=== PATIENT | male | born 1950 | race Caucasian/White ===

== ENCOUNTER 2017-01-19 07:03 | Day surgery (SDC) | payer MEDICAID ==
--- NOTE | 2017-01-19 06:44 | History and Physical Report ---
DATE: 01/18/2017. CHIEF COMPLAINT AND HISTORY OF CHIEF COMPLAINT: This patient presents with a history of an intractable lumbar radiculitis. A surgical evaluation with Dr. Herrera suggested no surgery, but a spinal cord stimulator trial was recommended. A trial was conducted which was not successful. He is here for an implanted spinal catheter infusion trial with hydromorphone to determine if the implantation of a permanent system can be of any value in his pain control. PAST MEDICAL HISTORY: Hypertension. SOCIAL HISTORY: Smoking and caffeine. FAMILY HISTORY: Coronary artery disease, hypertension, cancer. PAST SURGICAL HISTORY: Cervical spine fusion, cardiac catheterization. MEDICATIONS ON ADMISSION: To be provided. ALLERGIES: None. REVIEW OF SYSTEMS: The patient seems appropriate and in no acute distress. The remainder of the systems review shows glasses, dentures, blood pressure issues, reflux, degenerative arthritis. PHYSICAL EXAMINATION: General: Height is 5 feet, 9 inches weight is 160 pounds. Vital Signs: Unavailable. HEENT: Within normal limits. Lungs: Clear. Heart: Regular rate and rhythm. Abdomen: Nontender. Musculoskeletal: Examination of the musculoskeletal system shows diffuse tenderness throughout the lumbar spine extending from the lower scapular border to the lumbosacral junction. Range of motion does seem to produce pain into the area. There is a lower extremity component across the front and back surface. Motor and sensory field function appears to be intact. Ambulation: No assistive device is required for ambulation. Neurologic: Cranial nerves are intact. IMPRESSION: LUMBAR RADICULITIS, ICD-10 CODE M54.16 AND M54.17. PLAN: The patient is here for an implanted spinal catheter infusion trial with hydromorphone to determine if the intrathecal infusion of an opioid can be of any value in his pain control. Implanted catheter technique will be utilized. He is requesting an abdominal pump implant which will be handled by his referring physician, Dr. Herrera. We will tunnel a temporary catheter to his flank which will be exteriorized for an external pump. The permanent implant will then require removal of the externalized catheter and then will be interfaced to a separate catheter component tunneled to his abdomen. All of the potential risks, side effects, and complications have been evaluated and discussed including nerve root injury, spinal cord injury, spinal puncture with dural puncture and spinal headache. The appropriate information through the shop lead has also been provided, reviewed, and discussed in detail. He understands the potential risks, side effects, and complications and has consented. The trial will be handled on an outpatient basis, although we will evaluate an overnight stay. An epidural blood patch will be performed routinely also in an effort to help prevent spinal headache. JOB NUMBER: [id number] cc: Dimitris Curiel Dr.
[~2017-01-19 07:03] MED LIST: ACETAMINOPHEN 1,000 MG/100 ML BTL IV ONE; CEFAZOLIN 2 Gram 2 GM/50 ML BAG IVPB ONE; FAMOTIDINE 20MG TABLET PO ONE; HYDROMORPHONE PF 2MG/ML AMP 0.004 MG in 0.9 % SODIUM CHLORIDE 10ML VIA 0.998 ML IV ONE; HYDROMORPHONE PF 2MG/ML AMP 2 MG in 0.9 % SODIUM CHLORIDE 500ML 499 ML IV ONE; MECLIZINE 25 MG TABLET PO ONE; METOCLOPRAMIDE 10 MG TABLET PO ONE; VANCOMYCIN HCL 1,000 MG in DEXTROSE 5 % IN WATER 250 ML IVPB ONE
[2017-01-19] MEDS ORDERED: FENTANYL PF 100MCG/2ML VIAL IV ONE (07:04)
[2017-01-19] MEDS ORDERED: *PACU ONLY* KETAMINE HCL 10 MG/ML (20ML) VIAL IV ONE (07:04)
[2017-01-19] MEDS ORDERED: CEFAZOLIN 1G VIAL IM ONE (07:04)
[2017-01-19] MEDS ORDERED: LIDOCAINE 2% MDV (20MG/ML) 20ML VIAL IV ONE (07:04)
[2017-01-19] MEDS ORDERED: BUPIVACAINE 0.75% W/EPI MPF 30ML VIAL IVP ONE (07:04)
[2017-01-19] MEDS ORDERED: MIDAZOLAM HCL 2MG/2ML VIAL IV ONE (07:04)
[2017-01-19] MEDS ORDERED: HYDROMORPHONE HCL 2 MG/ML VIAL IV ONE (07:04)
[2017-01-19] MEDS ORDERED: LIDOCAINE 1% W/EPI 1:200,000 MPF 30ML SQ ONE (07:04)
[2017-01-19] MEDS ORDERED: PROPOFOL 10 MG/ML VIAL IV ONE (07:04)
[2017-01-19] MEDS ORDERED: DIPHENHYDRAMINE HCL 25 MG CAPSULE PO PRN ×2 (11:29)
[2017-01-19] MEDS ORDERED: HYDROMORPHONE HCL 1 MG/ML CPJ IM PRN (11:29)
[2017-01-19] MEDS ORDERED: ACETAMINOPHEN 325 MG TAB PO PRN ×2 (11:29)
[2017-01-19] MEDS ORDERED: NALOXONE 0.4 MG/1 ML VIAL IVP PRN (11:29)
[2017-01-19] MEDS ORDERED: METOCLOPRAMIDE HCL 10 MG/2 ML VIAL IVP PRN (11:29)
[2017-01-19] MEDS ORDERED: OXYCODONE/APAP 10MG-325MG TABLET PO PRN ×2 (11:29)
[2017-01-19] MEDS ORDERED: SENNOSIDES/DOCUSATE SODIUM UD CAPSULE PO PRN ×2 (11:29)
[2017-01-19] MEDS ORDERED: HYDROMORPHONE HCL 2 MG/ML VIAL IM PRN (11:29)
[2017-01-19] MEDS ORDERED: AL HYDROX/MAG HYDROX 30ML UD PO PRN (11:29)
[2017-01-19] MEDS ORDERED: TEMAZEPAM 15 MG CAPSULE PO PRN ×2 (11:29)
[2017-01-19] MEDS ORDERED: DIPHENHYDRAMINE HCL IV 50 MG/ML VIAL IVP PRN ×2 (11:29)
[2017-01-19] MEDS ORDERED: RINGERS SOLUTION,LACTATED 1,000 ML IV SCH (11:29)
[2017-01-19] MEDS ORDERED: HYDROCODONE/APAP 7.5/325MG TABLET PO PRN ×2 (11:29)
[2017-01-19] MEDS ORDERED: METOCLOPRAMIDE 10 MG TABLET PO PRN (11:29)
--- NOTE | 2017-01-19 16:42 | Operative Note - [facility] ---
DATE OF SURGERY: 01/19/17 PREOPERATIVE DIAGNOSES: 1. POST LUMBAR LAMINECTOMY SYNDROME, ICD-10 CODE = M96.1. 2. LUMBAR RADICULITIS, ICD-10 CODE = M54.16 AND M54.17. OPERATION: 1. FLUOROSCOPICALLY-GUIDED SPINAL ACCESS T L2-3, A THIN-WALLED 20-GAUGE SPINAL CATHETER PARAMEDIAN APPROACH BEVELED WITH A LONG AXIS. 2. THIN-WALLED SPINAL CATHETER ADVANCEMENT T8-9. 3. DIAGNOSTIC MYELOGRAPHY WITH RADIOLOGIC SUPERVISION AND INTERPRETATION. 4. SPINAL OPIOID BOLUS HYDROMORPHONE AT 0.002 MG SPINAL SPACE. 5. INCISION, SUBCUTANEOUS DISSECTION, AND ANCHORING OF SPINAL CATHETER TO SUPRASPINOUS FASCIA. 6. INCISION, SUBCUTANEOUS DISSECTION, AND CREATION OF SUBCUTANEOUS POUCH, LEFT FLANK SUPERIOR TO ILEAL CREST. 7. TUNNELING OF SPINAL CATHETER INTO FLANK POUCH. INTERFACE SPINAL CATHETER WITH SECOND CATHETER COMPONENT BY WAY OF CONNECTOR TUNNELING SECOND CATHETER COMPONENT SUPERIOR 6 CM EXITING SKIN. 8. INTERFACE EXTERNAL CATHETER TO INFUSION DEVICE SET TO DELIVER BY CONTINUOUS INFUSION HYDROMORPHONE AT 0.04 MG PER DAY. 9. CLOSURE OF MIDLINE INCISION VICRYL FOR FASCIA, RUNNING SUBCUTICULAR VICRYL FOR SKIN. CLOSURE OF LEFT FLANK INCISION, NYLON SUTURE. 10. EPIDURAL BLOOD PATCH AT L3-4, 20 ML AUTOLOGOUS BLOOD DRAWN STERILE TECHNIQUE , LEFT ANTECUBITAL. 11. STERILE DRESSING PLACED SECURING CATHETER AND ALL CONNECTIONS UNDER DRESSING. PATIENT TRANSPORTED TO THE RECOVERY ROOM STABLE, SHOWING NO SIDE- EFFECTS FROM THE PROCEDURE OR THE SEDATION, FLAT, PILLOW UNDER HEAD AND KNEES. IN THE RECOVERY ROOM, ALL EXTREMITY MOTIONS AND MOBILITY NOTED. NO COMPLICATIONS IDENTIFIED. SURGEON: JOSE CABRERA D.O. ANESTHESIA: LOCAL SEDATION. ANESTHESIA PROVIDER: MARTI VALERA CRNA INDICATION: This patient presents with a history of a postlaminectomy radiculitis. He is here for an implanted spinal catheter infusion trial Hydromorphone and will return to Dr. Herrera for permanent implant. The request has been for an abdominal pump on the left. The implanted catheter trial will tunnel the catheter to its left flank. A second catheter component exteriorized. For the permanent implant, the external catheter will be removed at the flank incision. A second catheter will then be extended to the pump in the abdomen. PROCEDURE: Intravenous line was placed, vital sign monitoring, IV sedation, prepped and draped in sterile technique, patient position prone. Sterile prep, sterile technique. As the patient was initially placed onto the table and the sedation started, it was noted that he was in, what appeared to be, something comparable to a sinus arrhythmia. There were periodic cycles of PACs and PVCs. Several rhythm strips were taken during this period of time. His blood pressure remained stable throughout. Eventually, his arrhythmia stabilized. There was no suggestion of continued cardiac arrhythmic activity. The procedure was then started once stabilized. The spinal interspace at L2-3 was marked, skin infiltrated, and a spinal needle 20-gauge using a paramedian approach beveled with a long axis was inserted into the spinal space using AP and lateral imaging. With CSF flow, a thin-walled spinal catheter was advanced and positioned T8-9 by his request. Diagnostic myelography was performed. The flow characteristics were smooth and linear in the space showing appropriate characteristics. No pain or abnormality noted. The skin above and below the needle infiltrated, incision made, and subcutaneous dissection was conducted to the supraspinous fascia. A pursestring suture was placed as the needle was removed to limit CSF loss. After the needle was removed, the stylette was removed with CSF continuing to be noted coming from the catheter. An anchoring device was then used to secure the catheter to the supraspinous fascia with nonabsorbable suture. At the left flank laterally, the skin was infiltrated and a small subcutaneous pouch was created. The spinal catheter was then tunneled into the left flank pouch and exiting the pouch itself. This catheter was then resected and interfaced by way of a connector with the second catheter component , which was tunneled superior from this pouch approximately 6 cm exiting the skin. This external catheter was then interfaced with an external pump set to deliver by Hydromorphone at 0.04 mg a day. The two incisions were then closed; midline incision Vicryl for fascia and running subcuticular Vicryl for skin. The flank incision with nylon suture. A Dermabond dressing was placed over the midline incision. An epidural blood patch was then performed at L3-4, one level below the dural puncture. 20 mL of autologous blood was drawn sterile technique from the left antecubital. This blood was used to perform the blood patch at this site. After the blood patch, needle was removed, the area was cleaned, and sterile dressing was applied securing the catheter and all connections under sterile dressing. He was transported stable, flat, pillow under head and knees. No side-effects noted. He was stable showing no complications. Full motor and sensory function of his extremities. He will be monitored flat in the Recovery Room and transported to the Floor and monitored for four hours, and then slowly elevated for one. We will order a baseline 12-lead EKG to document for further evaluation. He was fully informed of the occurrence. He will be monitored overnight then discharged in the morning. DISCHARGE INSTRUCTIONS: 1. The sites will remain clean and dry. No showering or bathing in any way that would disrupt dressings. If it happens, contact the clinic. 2. Standard medication resumed including Levaquin, the antibiotic, 500 mg once a day for 14 days. 3. Spinal opioid side-effects including respiratory depression, nausea, vomiting , constipation, urinary retention, lightheadedness or rash have all been discussed and reviewed. If it happens, contact the clinic or go to a local Emergency Room. All other instructions provided, numbers to contact, problems given. He will be seen in the office for his first increase in roughly three days. He will follow-up with his primary concerning his rhythm. cc: Dr. Marnie Herrera JOB NUMBER: [id number] MTDD
[2017-01-19] MEDS ORDERED: VANCOMYCIN HCL 1,000 MG in DEXTROSE 5 % IN WATER 250 ML IVPB ONE ×2 (20:10)
[2017-01-19] MEDS ORDERED: CARVEDILOL 3.125 MG TABLET PO SCH (22:00)
[2017-01-19] MEDS ORDERED: ATORVASTATIN 20 MG TABLET PO SCH (22:00)
[2017-01-20] MEDS ORDERED: PANTOPRAZOLE SODIUM 40 MG TABLET PO SCH (07:00)
--- NOTE | 2017-01-20 09:43 | RADIOLOGY REPORT ---
EXAM: THORACOLUMBAR SPINE, ONE VIEW HISTORY: PAIN PUMP TRIAL. TECHNIQUE: An AP view of the spine including the lower two-thirds of the thoracic spine and the majority of the lumbar spine is obtained. Comparison: Intraoperative radiographs dated 01/19/17 at 10:23. FINDINGS: There is an interspinal catheter in place via a left paracentral approach. This appears to enter the spinal canal at the L1-L2 level. The catheter tip projects at the mid T9 level. A multilead interspinal stimulator is in place via a right sided approach with the lead tips at the T5-T6 level. There are degenerative changes scattered throughout the visualized spine. S- shaped thoracolumbar scoliosis, mild to moderate in degree is present with the levocurvature centered at the L3-L4 level. No lytic or blastic bone lesion. IMPRESSION: 1. INTERSPINAL CATHETER IN PLACE, DISCUSSED ABOVE. 2. INTERSPINAL STIMULATOR ALSO DEMONSTRATED. JOB NUMBER: [id number] MTDD
== END 2017-01-19 16:15 | disposition home or self-care (01) ==
LOC: SUR 07:03 → MEDSURG 11:52 → SUR 16:15
PROVIDERS: ATTEND Pain Medicine Interventional Pain Medicine
DX: M96.1 Postlaminectomy syndrome, not elsewhere classified (principal); M54.16 Radiculopathy, lumbar region; M54.17 Radiculopathy, lumbosacral region; E78.00 Pure hypercholesterolemia, unspecified; I10 Essential (primary) hypertension; Z72.0 Tobacco use
CPT/HCPCS: 72020; 93005; 93010; 62350; 00630; Q9967; J3370; J3010; J1170 ×2; J3490; J0690; J7040; J7050; J7060

== ENCOUNTER 2017-02-02 12:36 | Day surgery (SDC) | payer MEDICAID ==
--- NOTE | 2017-02-02 07:00 | History and Physical Report ---
DATE: 02/01/2017. CHIEF COMPLAINT AND HISTORY OF CHIEF COMPLAINT: This patient presents with a history of intractable thoracic and lumbar radiculitis. Due to the failure of spinal cord stimulation and all conservative options, an implanted spinal catheter infusion trial with hydromorphone has been ongoing. Current base rate is 0.16 mg of hydromorphone over 24 hours. His pain level has dropped from a 10 + to a 5 at most. In fact, he feels that the primary region of his pain in the mid to low back is totally controlled. PAST MEDICAL HISTORY: Hypertension. SOCIAL HISTORY: Smoking, caffeine consumption. FAMILY HISTORY: Coronary artery disease, hypertension, cancer. PAST SURGICAL HISTORY: Cervical spine fusion, cardiac catheterization, implanted spinal catheter infusion trial. MEDICATIONS ON ADMISSION: To be provided. ALLERGIES: None. REVIEW OF SYSTEMS: The patient is appropriate and in no acute distress. The remainder of the review of systems shows glasses, dentures, blood pressure issues, reflux, degenerative arthritis. PHYSICAL EXAMINATION: General: Height is 5 feet, 9 inches and weight is 160 pounds. Vital Signs: Unavailable. HEENT: Within normal limits. Lungs: Clear. Heart: Regular rate and rhythm. Abdomen: Nontender. Musculoskeletal: Examination of the musculoskeletal system shows pain in the low and mid back area. His lower extremity functionality shows no focal sensory or motor deficits. The dressings are in place with the implanted catheter trial ongoing with the external pump working. Ambulation: No assistive device utilized. Neurologic: Cranial nerves are intact. IMPRESSION: 1. INTRACTABLE LUMBAR RADICULITIS, ICD-10 CODE M54.16 AND M54.17. 2. IMPLANTED SPINAL CATHETER INFUSION TRIAL WITH HYDROMORPHONE. PLAN: Overall this patient is doing well. His case is somewhat complicated. We had discussed initially implanting the pump in his lower abdomen. We have changed this now to his left flank above the belt line. The potential risks, side effects, and complications have all been carefully reviewed and discussed. All of his questions have been answered. The procedure will be considered outpatient, although an overnight stay will be evaluated. JOB NUMBER: [id number] cc: Dr. Josette Herrera D.O. CHALO
[~2017-02-02 12:36] MED LIST changes: -CEFAZOLIN 2 Gram 2 GM/50 ML BAG IVPB ONE; +HYDROMORPHONE HCL 0.02 GM in 0.9 % SODIUM CHLORIDE 10ML VIA 20 ML IV ONE; +HYDROMORPHONE HCL/PF 0.002 MG in 0.9 % SODIUM CHLORIDE 10ML VIA 0.998 ML IVP ONE; -HYDROMORPHONE PF 2MG/ML AMP 0.004 MG in 0.9 % SODIUM CHLORIDE 10ML VIA 0.998 ML IV ONE; -HYDROMORPHONE PF 2MG/ML AMP 2 MG in 0.9 % SODIUM CHLORIDE 500ML 499 ML IV ONE
[2017-02-02] MEDS ORDERED: FENTANYL PF 100MCG/2ML VIAL IV ONE (12:37)
[2017-02-02] MEDS ORDERED: CEFAZOLIN 1G VIAL IM ONE (12:37)
[2017-02-02] MEDS ORDERED: PROPOFOL 10 MG/ML VIAL IV ONE (12:37)
[2017-02-02] MEDS ORDERED: BUPIVACAINE 0.75% W/EPI MPF 30ML VIAL IVP ONE (12:37)
[2017-02-02] MEDS ORDERED: MIDAZOLAM HCL 2MG/2ML VIAL IV ONE (12:37)
[2017-02-02] MEDS ORDERED: LIDOCAINE 1% W/EPI 1:200,000 MPF 30ML SQ ONE (12:37)
[2017-02-02] MEDS ORDERED: LIDOCAINE 2% MDV (20MG/ML) 20ML VIAL IV ONE (12:37)
--- NOTE | 2017-02-03 05:25 | Operative Note - [facility] ---
DATE OF SURGERY: . PREOPERATIVE DIAGNOSIS: 1. INTRACTABLE LUMBAR RADICULITIS, ICD-10 CODE M54.16 AND M54.17. 2. IMPLANTED SPINAL CATHETER INFUSION TRIAL WITH HYDROMORPHONE. POSTOPERATIVE DIAGNOSIS: 1. INTRACTABLE LUMBAR RADICULITIS, ICD-10 CODE M54.16 AND M54.17. 2. IMPLANTED SPINAL CATHETER INFUSION TRIAL WITH HYDROMORPHONE. OPERATION: 1. Incision, subcutaneous dissection, and creation of subcutaneous pouch at the left flank for placement of pump identified as a Medtronic programmable 20 mL. 2. Incision, subcutaneous dissection, and revision of internal catheter with removal of external catheter component. 3. Revision of internal catheter component interfaced with secondary catheter by way of connector. 4. Interface of second revision catheter to pump. Placement of pump into pouch , securing to fascia with nonabsorbable suture. 5. Placement of curved 24-gauge Sutherland needle into access port for the programmable pump. Aspiration and clearing of 1.0 mL of catheter contents, clearing catheter of opioid and cerebrospinal fluid mixture. 6. Diagnostic myelography with radiologic supervision and interpretation, confirming catheter placement and functionality. 7. Closure of incision with Vicryl for the fascia and running subcuticular Vicryl for the skin. Dermabond closure. 8. Programming of pump to deliver by continuous infusion hydromorphone 0.16 mg a day. SURGEON: Kody Drake D.O. ANESTHESIA: Local sedation. ANESTHESIA PROVIDER: Brandy Stearns CRNA. INDICATION: This patient presents with a history of an implanted spinal catheter infusion trial with hydromorphone. Due to the failure of all therapies and the success of the trial, he is here for implantation of a permanent system into his left flank. DESCRIPTION OF PROCEDURE: Intravenous line, vital sign monitoring, and intravenous sedation. Prepped and draped with sterile technique. All of the previously placed dressings were removed. The external pump was sectioned from the external catheter component and removed from the field. At the left flank, the site picked by the patient for the pump, the skin was infiltrated. An incision was made and subcutaneous dissection was conducted to form a pouch of suitable size and depth. The externalized catheter with its connection to the internal catheter was identified. The connector was cut, and the externalized catheter was removed by pulling the catheter away from the site. Antibiotic irrigation and Bovie for hemostasis. The internal catheter was then revised and resected with a second catheter component by way of connector. The second catheter component was interfaced to a pump which was placed onto the field. This was a 20 mL programmable Medtronic filled with 1.0 mg per mL concentration of hydromorphone. The catheter connection was made. The pump was then placed into the pouch and secured to the fascia with nonabsorbable suture. While in the pouch, a 24-gauge Sutherland needle was inserted into the access port, and 1.0 mL of catheter contents was aspirated, clearing the catheter of opioid and a cerebrospinal fluid mixture. Diagnostic myelography was then performed through the access port. The resulting flow characteristics were smooth and linear, showing appropriate connections and flow characteristics. With confirmation of both the pump and the pouch, the incision was closed with Vicryl to the fascia and running subcuticular Vicryl for the skin. Dermabond closure. The pump was then programmed to delver by continuous infusion hydromorphone at 0.16 mg a day. With the appropriate dressings placed, he was transported to the recovery room stable, showing no side effects from the procedure or the sedation. When fully awake and alert, complex programming was then performed maintaining the original program. He was prepared for discharge. DISCHARGE INSTRUCTIONS: 1. The sites to remain clean and dry. No showering or bathing in any way that would disrupt dressings. If this happens, contact the clinic. 2. Standard medications to be resumed including Levaquin the antibiotic 500 mg once a day for 14 days. 3. The Dermabond will allow showering within the next 24 hours. He will be seen in the office in seven to ten days for evaluation of the sites. During this period of time, his activity should stay low. 4. All other instructions were provided and numbers to contact with problems were given. He was then prepared for discharge. JOB NUMBER: [id number] cc: Dr. Mellissa ISABEL
--- NOTE | 2017-02-03 09:10 | RADIOLOGY REPORT ---
EXAM: THORACOLUMBAR SPINE, SINGLE VIEW HISTORY: MEDICATION INFUSION PUMP PLACEMENT. TECHNIQUE: A single frontal view of the thoracolumbar spine was performed. Comparison: 01/19/17. FINDINGS: A medication infusion pump is present projecting over the left iliac crest. The pump tubing extends to the T9-T10 level. Electrical stimulator leads extend into the mid thoracic spine. There is dextroconvex scoliosis within the thoracolumbar spine and levoconvex scoliosis within the lumbar spine. Multilevel degenerative changes are also present. IMPRESSION: MEDICATION INFUSION PUMP IN PLACE WITH THE TUBING EXTENDING TO THE T9-T10 LEVEL. JOB NUMBER: [id number] MTDD
== END 2017-02-02 16:20 | disposition home or self-care (01) ==
LOC: SUR 12:36
PROVIDERS: ATTEND Pain Medicine Interventional Pain Medicine
DX: M54.16 Radiculopathy, lumbar region (principal); M54.17 Radiculopathy, lumbosacral region; E78.00 Pure hypercholesterolemia, unspecified
CPT/HCPCS: 62367; 72020; 62350; 00630; Q9967; J3370; J1170; J3010; J3490; C1755; J0690; J7060